=== PATIENT | female | born 1965 | race Caucasian/White ===

== ENCOUNTER → 2024-04-26 10:41 | Outpatient (REF) | payer BC, SELFPAY | LOC: RCS 10:41 | PROVIDERS: ATTENDING PHYSICIAN Internal Medicine Cardiovascular Disease; FAMILY PHYSICIAN Internal Medicine | DX: R07.89 Other chest pain (principal); I34.0 Nonrheumatic mitral (valve) insufficiency | CPT/HCPCS: 93017 ==

== ENCOUNTER → 2024-10-18 07:14 | Outpatient (REF) | payer BC, SELFPAY | LOC: WDC 07:14 | PROVIDERS: ATTENDING PHYSICIAN Obstetrics & Gynecology Gynecology | DX: Z12.31 Encounter for screening mammogram for malignant neoplasm of breast (principal) | CPT/HCPCS: 77063; 77067 ==

== ENCOUNTER → 2024-10-22 07:58 | Outpatient (REF) | payer BC, SELFPAY | LOC: RAD 07:58 | PROVIDERS: ATTENDING PHYSICIAN Nurse Practitioner | DX: M54.50 Low back pain, unspecified (principal) | CPT/HCPCS: 72110 ==

== ENCOUNTER → 2024-10-23 08:16 | Outpatient (REF) | payer BC, SELFPAY | LOC: WDC 08:16 | PROVIDERS: ATTENDING PHYSICIAN Obstetrics & Gynecology Gynecology | DX: R92.8 Other abnormal and inconclusive findings on diagnostic imaging of breast (principal) | CPT/HCPCS: 76642 ==

== ENCOUNTER → 2024-10-29 19:59 | Outpatient (REF) | payer BC, SELFPAY | LOC: PAVMRI 19:59 | PROVIDERS: ATTENDING PHYSICIAN Nurse Practitioner | DX: M54.50 Low back pain, unspecified (principal) | CPT/HCPCS: 72148 ==

== ENCOUNTER 2025-07-27 08:07 | Emergency (ER) | payer BC, SELFPAY ==
[2025-07-27 08:17] VITALS: BP 140/85
--- NOTE | 2025-07-27 08:48 | ED.GENMED ---
History of Present Illness
General
Chief Complaint: Abdominal Pain
Source: patient
Time Seen by Provider: 07/27/25 08:25
History of Present Illness
History of Present Illness:
60-year-old female with no significant past medical history presenting to the emergency department for evaluation of right upper quadrant abdominal pain that began Monday night while sleeping stating that earlier that evening she did have some
fried foods and a mariah which is not typical for her, pain is described to be constant, initially sharp and stabbing now more of a intense throbbing sensation, no exacerbating or alleviating factors or any other symptoms. Patient believes
yesterday pain may have been aggravated by some food. She did attempt some Motrin and Tylenol but without much relief. She denies any fevers, chills, rigors, back or flank pain, urinary symptoms or bowel changes. Denies any history of similar.
Social history otherwise noncontributory other than the after mentioned. No history of GI related surgeries.
Past History
Past History
ED Past Medical History: None
ED Past Surgical History: Gynecological
Social History
Tobacco: Non-smoker
Alcohol: Occasional
Drug: None
Personal:
Living: with family
Review of Systems
Review of Systems
All Other Systems: ROS reviewed and negative except as documented in HPI and ROS
Phy Exam
Physical Exam
Physical Exam:
GENERAL: Alert , in no apparent distress
EYE: clear conjunctiva b/l
HEAD: NCAT
ENT: mmm.
CARDIAC: Regular rate and rhythm .
LUNGS: Clear breath sounds bilaterally, no acute respiratory distress, no wheezes/rales/rhonchi
ABDOMEN: Soft, mild tenderness within the epigastrium and right upper quadrant, no r/g, no cvat, negative Bartlett sign, no tenderness at McBurney's point
NEUROLOGICAL: Alert and oriented
SKIN: Warm and dry, skin intact.
MUSCULOSKELETAL: well perfused.
PSYCH: Normal and appropriate interaction.
Scores
Heart Failure Risk
Heart Failure Risk Score: Not Applicable
Heart Score for Chest Pain Patients
STEMI patient?: Not applicable
Withdrawal Assessment of Alcohol
Withdrawal Assessment Completed?: Not applicable
Course
Orders/Labs/Results
Orders:
Orders
07/27/25 08:40
Ketorolac [Toradol] 30 mg IV NOW STA
US Abdomen Complete/Upper Urgent
Comment:
Reason For Exam: RUQ pain
07/27/25 08:41
Urinalysis Reflex To Culture Urgent
Date Specimen was Collected: 07/27/25
Time Specimen was Collected: 10:14
07/27/25 10:41
Complete Blood Count/With Diff Urgent
Comprehensive Metabolic Panel Urgent
Lipase Urgent
07/27/25 11:09
Electrocardiogram (*1) Urgent
Reason for Study: Abdominal Pain
EKG- Treatment ONCE
07/27/25 11:30
Troponin I Urgent
Abnormal Lab Results
07/27/25
10:41
WBC 4.4 L 10^3/uL
(4.8-10.8)
Chloride 108 H mmol/L
(98-107)
07/27/25 10:41
07/27/25 10:41
Vital Signs
Initial and Last Documented VS:
Initial Vital Signs
Temp Pulse Resp BP Pulse Ox
98.0 F 76 18 140/85 99
07/27/25 08:17 07/27/25 08:17 07/27/25 08:17 07/27/25 08:17 07/27/25 08:17
Last Documented Vital Signs
Temp Pulse Resp BP Pulse Ox
98.0 F 70 18 135/72 98
07/27/25 08:17 07/27/25 10:00 07/27/25 10:00 07/27/25 10:00 07/27/25 10:00
MDM/Problems Addressed
Differential Diagnosis Includes:
GERD
Gastritis
Cholecystitis
Symptomatic cholelithiasis
Cholangitis
Pancreatitis
Duodenitis
Less concern for an atypical ACS presentation
MDM/Problems Addressed:
60-year-old female presented the ER for evaluation of epigastric to right upper quadrant abdominal pain since Monday after she had eaten and drank food and alcohol that is not typical for her. Pain has been persistent since then. Arrives
hemodynamically stable and afebrile. Abdominal exam did reveal tenderness within the epigastrium and right upper quadrant but abdomen was otherwise soft. Will check labs and ultrasound. Toradol ordered for pain control. Reassessment following.
*Radiology
Radiology exam reviewed: radiology read reviewed
*Pulse Oximetry
SaO2: 99
Oxygen Mode of Delivery: Room air
Patient hypoxic: no
*EKG
Heart Rate: 64
Rate: normal
Rhythm: sinus
Edon: left axis deviation
Ischemia: no ischemia
*Critical Care Note
Total Time (30-74mins, 75-104mins- exclusive of procedures): Not Applicable
Patient Management
Escalation/DeEscalation of care consider admission/obs:
Labs, ultrasound and EKG acute. Patient does not markedly improve his symptoms. I do suspect GERD/gastritis/duodenitis or other nonemergent emergent pathology as likely diagnosis. Will prescribe Protonix for patient to use daily and Maalox as
needed. Follow-up with primary care provider. Patient aware of return precautions to the emergency department
ED Attending Note
-
Portions of this chart may have been created with voice recognition software.� Occasional wrong word or��sound alike� substitutions may have occurred due to the inherent limitations of voice recognition software.
Discharge Plan
Departure
Patient Disposition: Home (Routine Discharge)
Date of Disposition: 07/27/25
Time of Disposition: 11:24
Patient with high blood pressure during this ER visit?: Yes
Discharge Problem:
Abdominal pain
Instructions: Abdominal Pain
Prescriptions:
New
pantoprazole [Protonix] 40 mg tablet,delayed release (DR/EC)
40 mg PO DAILY Qty: 30 0RF
alum-mag hydroxide-simeth [Maalox Advanced] 200-200-20 mg/5 mL suspension
10 ml PO QID PRN (Reason: dyspepsia) Qty: 1000 0RF
Referrals:
Shmuel Mercer MD [Family Provider, Internal Medicine]
Interventions
Interventions:
*Risk Screen - Suicide Last Done: 07/27/25 08:17
*General Assessment Last Done: 07/27/25 08:17
*Neglect/Abuse Screening Last Done: 07/27/25 12:38
*ED- Fall Risk Assessment Last Done: 07/27/25 12:38
*ED COVID-19 Vaccine History Last Done: 07/27/25 12:39
*Nursing Disposition Last Done: 07/27/25 12:38
HY-Jbamhw-Nzovxykqog Assessment Last Done: 07/27/25 12:38
Discharge Date and Time
Discharge Date/Time: 07/27/25 12:10
Print Language: CZECH
[2025-07-27 10:00] VITALS: BP 135/72
[2025-07-27] MEDS: TORADOL 30 MG IV (10:32)
[2025-07-27 10:52] LABS: Hematocrit 41.8 % (37.0-47.0); Hemoglobin 14.3 g/dL (12.0-16.0); Mean Corp Hgb Conc. 34.2 g/dL (33.0-37.0); Mean Corpuscular Volume 89.1 fL (81.0-99.0); Nucleated Red Blood Cells % 0 %; Platelet Count 239 10^3/uL (130-400); Red Cell Dist. Width 11.9 % (11.5-14.5)
[2025-07-27 10:53] LABS: Urine Character Clear (Clear)
[2025-07-27 11:07] LABS: ALT (SGPT) 29 U/L (0-35); AST (SGOT) 34 U/L (14-36); Albumin 4.4 g/dl (3.5-5.0); Alkaline Phosphatase 92 U/L (38-126); Blood Urea Nitrogen 14 mg/dl (7-17); Calcium 9.5 mg/dl (8.4-10.2); Carbon Dioxide 28 mmol/L (22-30); Chloride 108 mmol/L (98-107); Glucose 93 mg/dl (70-99); Lipase 103 U/L (23-300); Potassium 4.4 mmol/L (3.5-5.1); Sodium 140 mmol/L (135-145); Total Protein 6.7 g/dl (6.3-8.2); eGFR > 60.00
[2025-07-27 12:02] LABS: Troponin I < 0.012 ng/ml
== END 2025-07-27 12:10 | disposition home or self-care (01) ==
LOC: EMR 08:07
PROVIDERS: Physician Assistant Medical; EMERGENCY PHYSICIAN Emergency Medicine; FAMILY PHYSICIAN Internal Medicine
DX: R10.11 Right upper quadrant pain (principal)
CPT/HCPCS: 99284; 96374; 76700; 80053; 81003; 83690; 84484; 85025; 93005

== ENCOUNTER → 2025-10-21 07:29 | Outpatient (REF) | payer BC, SELFPAY | LOC: WDC 07:29 | PROVIDERS: ATTENDING PHYSICIAN Obstetrics & Gynecology Gynecology | DX: Z12.31 Encounter for screening mammogram for malignant neoplasm of breast (principal) | CPT/HCPCS: 77063; 77067 ==